=== PATIENT | male | born 1970 | race Two or more races ===

== ENCOUNTER 2016-08-05 12:59 | Emergency (ER) | payer OTHER ==
[~2016-08-05] VITALS: Ht 152.4 cm; Wt 48.5 kg
--- NOTE | 2016-08-05 13:26 | Emergency Room Report ---
History of Present Illness General Chief Complaint: Laceration Source: Patient Present Illness HPI The pt is a 46 yo M presenting for R hand laceration. The pt was at work when he mistakenly sliced his R 4th finger using a mandolin. The pt notes an avulsion of the skin with slight bleeding. Pain described as 3/10 dull ache and does not radiate. Last tetanus shot 3 years prior. No other complaints. Allergies: Coded Allergies: No Known Allergies (Unverified , 08/05/16) Patient History Past Medical History: see triage record Pertinent Family History: none Immunizations: UTD Reviewed Nursing Documentation: PMH: Agreed, PSxH: Agreed Nursing Documentation-PMH Past Medical History: No History, Except For Hx Diabetes: Yes Review of Systems All Other Systems: negative except mentioned in HPI Physical Exam Vital Signs Date Time Temp Pulse Resp B/P Pulse Ox O2 Delivery O2 Flow Rate FiO2 08/05/16 13:08 98.4 79 18 142/83 98 Room Air Sp02 EP Interpretation: reviewed, normal General Appearance: no apparent distress, alert, GCS 15, non-toxic Head: normocephalic, atraumatic Neck: full range of motion, supple/symm/no masses Gastrointestinal: normal bowel sounds, non tender, soft, non-distended, no guarding, no rebound Genitourinary: normal inspection, no CVA tenderness Musculoskeletal: back normal, gait/station normal, normal range of motion Neurologic: alert, oriented x3, responsive, motor strength/tone normal, sensory intact, speech normal Psychiatric: judgement/insight normal, memory normal, mood/affect normal, no suicidal/homicidal ideation Skin: laceration - 1cm avulsion of skin of R 4th finger volar surface distal to DIPJ. No bleeding. Medical Decision Making PA Attestation Dr. Giordano is my supervising physician. Patient management was discussed with my supervising physician Diagnostic Impression: Primary Impression: Laceration ER Course The pt is a 46 yo M presenting for R hand laceration. DDx: skin avulsion, laceration, nerve injury, wound infection PE: vitals WNL .NAD 1cm avulsion of skin of R 4th finger volar surface distal to DIPJ. No bleeding. Full AROM. SILT. Pt informed there is no option of repair as skin has been avulsed. Pt agrees. Wound cleaned with betadine and NS. Bacitracin applied with sterile dressing. ER precautions given. Last Vital Signs Date Time Temp Pulse Resp B/P Pulse Ox O2 Delivery O2 Flow Rate FiO2 08/05/16 13:08 98.4 79 18 142/83 98 Room Air Status: improved Disposition: HOME, SELF-CARE Condition: Improved Scripts Bacitracin (Bacitracin) 28.4 Gm Oint...g. 1 APPLIC TOPIC THREE TIMES A DAY, #28 GM Prov: ANALISA ARREOLA 08/05/16 ANALISA ARREOLA Aug 05, 2016 13:26
[2016-08-05] MEDS ORDERED: Bacitracin Oint UD TOPIC ONE (13:30)
[2016-08-05] MEDS ORDERED: BACITRACIN15 GM TOPIC (14:14)
[2016-08-05 14:36] VITALS: BP 138/73
== END 2016-08-05 14:36 | disposition home or self-care (01) ==
LOC: EMR 13:33
DX: S61.411A Laceration without foreign body of right hand, initial encounter (principal); E11.9 Type 2 diabetes mellitus without complications; W45.8XXA Other foreign body or object entering through skin, initial encounter; Y92.9 Unspecified place or not applicable; Y99.8 Other external cause status
CPT/HCPCS: 99284